=== PATIENT | male | born 1985 | race Caucasian/White ===

== ENCOUNTER → 2017-08-14 | Outpatient (CLI) | payer BC ==
[2017-08-14 19:35] LABS: ALBUMIN 4.3 GM/DL (3.2-5.2); ALBUMIN/GLOBULIN RATIO 1.72 (1.00-1.93); ALKALINE PHOSPHATASE 91 U/L (45-117); ALT/SGPT 104 U/L (12-78); ANION GAP 3 MEQ/L (8-16); AST/SGOT 44 U/L (7-37); BILIRUBIN,TOTAL 0.6 MG/DL (0.2-1.0); BLOOD UREA NITROGEN 14 MG/DL (7-18); CALCIUM LEVEL 9.4 MG/DL (8.5-10.1); CARBON DIOXIDE LEVEL 31 MEQ/L (21-32); CHLORIDE LEVEL 106 MEQ/L (98-107); CREATININE FOR GFR 1.12 MG/DL (0.70-1.30); GLOMERULAR FILTRATION RATE > 60.0 (>60); GLUCOSE, FASTING 84 MG/DL (70-100); POTASSIUM SERUM 4.4 MEQ/L (3.5-5.1); SODIUM LEVEL 140 MEQ/L (136-145); TOTAL PROTEIN 6.8 GM/DL (6.4-8.2)
[2017-08-14 19:38] LABS: BASO % 0.6 % (0.0-1.0); EOS # 0.1 10^3/uL (0.0-0.50); EOS % 2.2 % (0.0-3.0); HEMATOCRIT 46.2 % (42.0-52.0); HEMOGLOBIN 15.2 g/dl (13.5-17.5); IMMATURE GRANULOCYTE % 0.6 % (0-3.0); LYMPH # 2.3 10^3/uL (1.5-4.5); LYMPH % 37.3 % (24.0-44.0); MEAN CORPUSCULAR HGB CONC 32.9 g/dl (32.0-36.5); MEAN CORPUSCULAR VOLUME 85.1 fl (80.0-96.0); MONO # 0.7 10^3/uL (0.0-0.8); MONO % 11.2 % (0.0-5.0); NEUTROPHILS % 48.1 % (36.0-66.0); PLATELET COUNT, AUTOMATED 185 10^3/uL (150-450); RED BLOOD COUNT 5.43 10^6/uL (4.30-6.10); RED CELL DISTRIBUTION WIDTH 13.2 % (11.5-14.5); WHITE BLOOD COUNT 6.3 10^3/uL (4.0-10.0)
== END ==
LOC: M WUC 11:42
DX: R10.84 Generalized abdominal pain (principal)
CPT/HCPCS: 80053

== ENCOUNTER → 2018-10-04 | Outpatient (CLI) | payer BC ==
[2018-10-04 12:16] LABS: BLOOD UREA NITROGEN 18 MG/DL (7-18); CALCIUM LEVEL 9.3 MG/DL (8.5-10.1); CARBON DIOXIDE LEVEL 30 MEQ/L (21-32); CHLORIDE LEVEL 105 MEQ/L (98-107); CHOLESTEROL LEVEL 202 MG/DL (<200); CHOLESTEROL RISK RATIO 5.459 (<5); CREATININE FOR GFR 1.06 MG/DL (0.70-1.30); GLOMERULAR FILTRATION RATE > 60.0 (>60); GLUCOSE, FASTING 90 MG/DL (70-100); HDL CHOLESTEROL 37 MG/DL (>40); LDL CHOLESTEROL 143 MG/DL (<100); NON-HDL-C 165 MG/DL; POTASSIUM SERUM 4.3 MEQ/L (3.5-5.1); SODIUM LEVEL 140 MEQ/L (136-145); TRIGLYCERIDES LEVEL 110 MG/DL (<150)
[2018-10-04 13:42] LABS: HEMOGLOBIN A1c 5.4 %
== END ==
LOC: M LAB 11:09
PROVIDERS: ATTEND Physician Assistant
DX: I10 Essential (primary) hypertension (principal); E66.01 Morbid (severe) obesity due to excess calories

== ENCOUNTER 2019-10-15 12:56 | Emergency (ER) | payer BC ==
[~2019-10-15] VITALS: Ht 190.5 cm; Wt 183.0 kg
[2019-10-15] MEDS ORDERED: ASPIRIN 81 MG CHEW TABLET PO ONE (13:15)
[2019-10-15] MEDS ORDERED: AMLO1TAB24 PO (13:18)
[2019-10-15] MEDS ORDERED: LISI20TA35 PO (13:18)
[2019-10-15 13:26] LABS: BASO # 0.1 10^3/uL (0.0-0.2); BASO % 0.6 % (0.0-1.0); EOS # 0.2 10^3/uL (0.0-0.5); EOS % 2.1 % (0.0-3.0); HEMATOCRIT 45.4 % (42.0-52.0); HEMOGLOBIN 15.1 g/dl (13.5-17.5); LYMPH # 2.1 10^3/uL (1.5-5.0); LYMPH % 24.9 % (24.0-44.0); MEAN CORPUSCULAR HEMOGLOBIN 28.3 pg (27.0-33.0); MEAN CORPUSCULAR HGB CONC 33.3 g/dl (32.0-36.5); MONO # 0.6 10^3/uL (0.0-0.8); MONO % 6.5 % (0.0-5.0); NEUTROPHILS # 5.5 10^3/uL (1.5-8.5); NEUTROPHILS % 64.8 % (36.0-66.0); PLATELET COUNT, AUTOMATED 232 10^3/uL (150-450); RED BLOOD COUNT 5.34 10^6/uL (4.30-6.10); WHITE BLOOD COUNT 8.5 10^3/uL (4.0-10.0)
[2019-10-15 13:40] LABS: INR 1.07; PROTHROMBIN TIME 13.6 SECONDS (11.8-14.0)
[2019-10-15] MEDS ORDERED: ISOVUE-370 76% 100ML VIAL As Ordered ONE ×2 (13:46→14:52)
--- NOTE | 2019-10-15 13:53 | REP ---
CHEST, SINGLE VIEW: There is no evidence of acute infiltrate. No pleural effusion is seen. The heart is normal in size. The mediastinal silhouette is unremarkable. The visualized osseous structures are intact. IMPRESSION: No acute pulmonary disease. Electronically Signed by Orlando Etienne MD 10/16/2019 07:08 P
[2019-10-15 14:08] LABS: ALBUMIN 3.8 GM/DL (3.2-5.2); ALT/SGPT 54 U/L (12-78); BILIRUBIN,DIRECT 0.1 MG/DL (0.0-0.2); BILIRUBIN,TOTAL 0.5 MG/DL (0.2-1.0); CK-MB VALUE MASS 2.9 NG/ML (<3.6); CPK CREATINE PHOSPHOKINASE 164 U/L (39-308); FREE T4 1.15 NG/DL (0.76-1.46); LIPASE 197 U/L (73-393); MB/CK RELATIVE INDEX 1.77 (< OR =4); TOTAL PROTEIN 6.9 GM/DL (6.4-8.2); TROPONIN I < 0.02 NG/ML (< 0.10)
[2019-10-15] MEDS ORDERED: NS 1,000 ML IV ONE (14:45)
--- NOTE | 2019-10-15 14:52 | REP ---
REASON FOR EXAM: Chest pain and dyspnea. COMPARISON: None. CONTRAST: 100 mL Isovue 370. There is suboptimal visualization of the pulmonary arterial vasculature secondary to a combination of respiratory motion artifact and an add-mixture of blood and contrast within the pulmonary arteries due to poor injection timing. There is no evidence of mediastinal or hilar adenopathy. There are no pleural or pericardial effusions. The imaged upper abdomen and imaged osseous structures are within normal limits. Evaluation of the lung sage shows no evidence of an abnormal nodule, mass or opacity, however, significant respiratory motion artifact obscures the fine detail to such a degree a significant nodule could be obscured. IMPRESSION: The examination is markedly limited as described above. No gross abnormality is identifiable. Followup is recommended with repeat exam. If necessary obtain ventilation perfusion scintigraphy. Electronically Signed by Antony Evans DO 10/15/2019 03:22 P
[2019-10-15] MEDS ORDERED: GI COCKTAIL 50ML BTL(HYOSCYAMINE/MAALOX/LIDOCAINE VISCOUS)(1:3:1) PO ONE (15:45)
--- NOTE | 2019-10-15 16:11 | REP ---
CT ANGIOGRAM CHEST: CT angiogram of the chest is repeated due to breathing motion . 75 mL of Isovue 370 is injected and images are obtained from the aortic arch to the top of the diaphragms. Sagittal and coronal reconstruction images are performed. Pulmonary arteries opacify well with contrast. There is no evidence of pulmonary embolism. There is no thoracic aortic aneurysm or dissection. I see no adenopathy of the visualized chest. No pleural fluid is seen. The visualized lung sage are clear. IMPRESSION: No CT evidence of pulmonary embolism. Electronically Signed by Orlando Etienne MD 10/16/2019 07:18 P
--- NOTE | 2019-10-15 18:47 | ECGEPIP ---
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
[2019-10-15 19:13] LABS: CK-MB VALUE MASS 2.4 NG/ML (<3.6); CPK CREATINE PHOSPHOKINASE 136 U/L (39-308); MB/CK RELATIVE INDEX 1.76 (< OR =4); TROPONIN I < 0.02 NG/ML (< 0.10)
--- NOTE | 2019-10-15 19:29 | ECGEPIP ---
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
[2019-10-15 20:39] VITALS: BP 149/72
== END 2019-10-15 20:40 | disposition home or self-care (01) ==
LOC: M ED 12:56
DX: R07.89 Other chest pain (principal); R00.0 Tachycardia, unspecified; R94.31 Abnormal electrocardiogram [ECG] [EKG]; I10 Essential (primary) hypertension; J30.81 Allergic rhinitis due to animal (cat) (dog) hair and dander; Z87.891 Personal history of nicotine dependence; Z79.899 Other long term (current) drug therapy; Z88.0 Allergy status to penicillin
CPT/HCPCS: 71045; 71275; 80047; 80076; 82550; 82553; 83690; 84439; 84443; 84484; 85025; 85610; 85730; 93005; 93041; 94760; 96360; 96361; 96365; 99285; Q9967

== ENCOUNTER → 2019-10-24 | Outpatient (CLI) | payer BC ==
[~2019-10-24] MED LIST: AMLO5TAB6 PO; LISI20TA19 PO
[2019-10-24 10:43] LABS: BLOOD UREA NITROGEN 21 MG/DL (7-18); CALCIUM LEVEL 9.2 MG/DL (8.5-10.1); CARBON DIOXIDE LEVEL 32 MEQ/L (21-32); CHLORIDE LEVEL 102 MEQ/L (98-107); CREATININE FOR GFR 1.09 MG/DL (0.70-1.30); FREE T4 1.13 NG/DL (0.76-1.46); GLOMERULAR FILTRATION RATE > 60.0 (>60); GLUCOSE, FASTING 95 MG/DL (70-100); SODIUM LEVEL 140 MEQ/L (136-145)
== END ==
LOC: M LAB 08:36
PROVIDERS: ATTEND Physician Assistant
DX: I10 Essential (primary) hypertension (principal); E66.01 Morbid (severe) obesity due to excess calories